=== PATIENT | male | born 1975 | race Hispanic/Latino ===

== ENCOUNTER 2022-08-23 08:58 | Emergency (ER) | payer SELFPAY | END 2022-08-23 10:41 | disposition home or self-care (01) | LOC: ERS 08:58 | DX: S02.2XXA Fracture of nasal bones, initial encounter for closed fracture (principal); I10 Essential (primary) hypertension; E11.9 Type 2 diabetes mellitus without complications; F17.210 Nicotine dependence, cigarettes, uncomplicated; Y04.0XXA Assault by unarmed brawl or fight, initial encounter; Y99.0 Civilian activity done for income or pay | CPT/HCPCS: 70450; 70486; 72125 ==